=== PATIENT | female | born 1960 | race Hispanic/Latino ===

== ENCOUNTER 2023-03-26 19:35 | Emergency (ER) | payer OTHER ==
[~2023-03-26] VITALS: Ht 149.9 cm; Wt 97.1 kg
[2023-03-26] MEDS ORDERED: IBUP-1493 PO (21:21)
[2023-03-26 21:35] VITALS: BP 148/72; PULSE 88; RESP 18; O2SAT 99
== END 2023-03-26 21:38 | disposition home or self-care (01) ==
LOC: EDH 19:35
DX: S96.811A Strain of other specified muscles and tendons at ankle and foot level, right foot, initial encounter (principal); I10 Essential (primary) hypertension; E11.9 Type 2 diabetes mellitus without complications; E03.9 Hypothyroidism, unspecified; E78.00 Pure hypercholesterolemia, unspecified; W01.0XXA Fall on same level from slipping, tripping and stumbling without subsequent striking against object, initial encounter; Y93.01 Activity, walking, marching and hiking; Y92.89 Other specified places as the place of occurrence of the external cause; Y99.8 Other external cause status
CPT/HCPCS: 73600